=== PATIENT | female | born 1975 | race American Indian/Alaskan Native ===

== ENCOUNTER 2019-06-27 21:30 | Emergency (ER) | payer OTHER ==
[2019-06-27 21:43] VITALS: BP 132/78
[2019-06-27 22:31] LABS: HCG Qualitative,Urine Negative (Negative)
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
== END 2019-06-28 00:25 | disposition left against medical advice (07) ==
LOC: ED 21:30
DX: M79.642 Pain in left hand (principal); M54.5 Low back pain; Z53.21 Procedure and treatment not carried out due to patient leaving prior to being seen by health care provider
CPT/HCPCS: 81025